=== PATIENT | male | born 1940 | race Caucasian/White ===

== ENCOUNTER 2017-03-15 08:17 | Emergency (ER) | payer OTHER ==
[~2017-03-15] VITALS: Ht 160 cm; Wt 76.2 kg
[~2017-03-15 08:17] MED LIST: AMLO1CAP56 PO; ASPI-1063 PO; ATEN-41 PO; CARB-15 PO; FINA5TAB11 PO; LISI40TA4 PO; NIAC500C8 PO; NITR0.4T13 SL; PRAM0.258 PO
[2017-03-15 08:31] VITALS: BP_SYST 166
[2017-03-15 09:06] LABS: BASOPHILS # (AUTO) 0.1 K/uL (0.0-0.2); BASOPHILS % (AUTO) 1.8 % (0.0-2.0); EOSINOPHILS # (AUTO) 0.2 K/uL (0.0-0.4); EOSINOPHILS % (AUTO) 1.9 % (0.0-4.0); HEMATOCRIT 47.1 % (36-54); HEMOGLOBIN 15.8 g/dL (14.0-18.0); LYMPHOCYTES # (AUTO) 2.1 K/uL (1.0-5.5); LYMPHOCYTES % (AUTO) 25.1 % (20.5-51.5); MEAN CORPUSCULAR HEMOGLOBIN 31 pg (27-31); MEAN CORPUSCULAR HGB CONC 34 % (32-36); MEAN CORPUSCULAR VOLUME 94 fL (79.0-98.0); MONOCYTES # (AUTO) 0.6 K/uL (0.0-1.0); MONOCYTES % (AUTO) 7.1 % (1.7-9.3); NEUTROPHILS # (AUTO) 5.2 K/uL (1.8-7.7); NEUTROPHILS % (AUTO) 64.1 % (40.0-70.0); PLATELET COUNT (AUTO) 203 K/uL (130-430); RED BLOOD CELL COUNT(AUTO) 5.04 MIL/uL (4.2-6.2); RED CELL DISTRIBUTION WIDTH 13.7 % (9.0-15.0); WHITE BLOOD COUNT (AUTO) 8.2 K/uL (4.8-10.8)
[2017-03-15 09:10] VITALS: BP_SYST 166
[2017-03-15 09:16] LABS: ANION GAP 8 (5-15); CALCIUM 8.8 mg/dL (8.4-11.0); CHLORIDE 104 mmol/L (98-107); CREATININE 1.32 mg/dL (0.55-1.30); GLUCOSE 120 mg/dL (70-99); POTASSIUM 3.7 mmol/L (3.5-5.1); SODIUM SERUM 138 mmol/L (136-145); UREA NITROGEN, BLOOD 23 mg/dL (8-21)
[2017-03-15 09:19] LABS: PROTHROMBIN TIME 10.6 SECS (9.5-12.5)
[2017-03-15 09:33] LABS: ALANINE AMINOTRANSFERASE 13 U/L (12-78); ASPARTATE AMINOTRANSFERASE 24 U/L (10-37); FREE T4 (FREE THYROXINE) 0.7 ng/dL (0.6-1.6); TOTAL BILIRUBIN 0.6 mg/dL (0.0-1.0)
[2017-03-15 09:35] LABS: ALCOHOL, BLOOD < 3 mg/dL (<10)
[2017-03-15 10:12] LABS: BILIRUBIN,URINE NEGATIVE (NEGATIVE); CLARITY/URINE CLEAR (CLEAR); COLOR,URINE YELLOW (YELLOW); GLUCOSE,URINE NEGATIVE (NEGATIVE); KETONES,URINE NEGATIVE (NEGATIVE); LEUKOCYTE ESTERASE ,URINE NEGATIVE (NEGATIVE); NITRITE, URINE NEGATIVE (NEGATIVE); PH,URINE 6.5 (5.0-8.0); PROTEIN URINE 2+ (NEGATIVE); UROBILINOGEN,URINE 0.2 (0.2-1.0)
[2017-03-15] MEDS ORDERED: CARB-64 PO (10:15)
[2017-03-15] MEDS ORDERED: LORA-258 PO (10:15)
[2017-03-15] MEDS ORDERED: QUET50TA13 PO (10:15)
[2017-03-15 10:17] LABS: BLOOD, URINE TRACE (NEGATIVE)
[2017-03-15 10:25] LABS: BARBITURATE, URINE NEGATIVE (NEG <=200); METHAMPHETAMINES SCREEN,URINE NEGATIVE (NEG <=500); URINE AMPHETAMINE NEGATIVE (NEG <=500)
[2017-03-15 10:26] LABS: BENZODIAZEPINE, URINE POSITIVE (NEG <=150); CANNABINOID, URINE NEGATIVE (NEG <=50); COCAINE, URINE NEGATIVE (NEG <=150); OPIATE, URINE NEGATIVE (NEG <=100); PHENCYCLIDINE SCREEN,URINE NEGATIVE (NEG <=25); UR TRICYCLIC ANTIDEPRESSANTS POSITIVE (NEG <=300); URINE METHADONE NEGATIVE (NEG <=200); URINE OXYCODONE SCREEN NEGATIVE (NEG <=100); URINE PROPOXYPHENE SCREEN NEGATIVE (NEG <=300)
[2017-03-15 10:34] LABS: BACTERIA,URINE FEW /HPF (None Seen); MUCUS,URINE None Seen /LPF (None Seen); RBC,URINE 0-3 /HPF (0-3); WBC,URINE 0-3 /HPF (0-3)
[2017-03-15] MEDS: cloNIDine HCL 0.1 MG TABLET PO ONE (11:31)
== END 2017-03-15 11:27 | disposition home or self-care (01) ==
LOC: SED 08:17
DX: R55 Syncope and collapse (principal); R53.1 Weakness; R51 Headache; I10 Essential (primary) hypertension; G20 Parkinson's disease; F03.90 Unspecified dementia, unspecified severity, without behavioral disturbance, psychotic disturbance, mood disturbance, and anxiety; E78.5 Hyperlipidemia, unspecified; I20.9 Angina pectoris, unspecified; Z95.1 Presence of aortocoronary bypass graft; Z79.82 Long term (current) use of aspirin; Z88.8 Allergy status to other drugs, medicaments and biological substances
CPT/HCPCS: 36415; 70450; 71010; 74000; 80053; 80307; 81000; 82140; 83605; 83880; 84439; 84484; 85025; 85610; 87040; 93005; 99285; G0482

== ENCOUNTER 2017-05-22 17:16 | Emergency (ER) | payer OTHER ==
[~2017-05-22] VITALS: Ht 160 cm; Wt 76.7 kg
[~2017-05-22 17:16] MED LIST changes: +CARB-64 PO; +LORA-258 PO; +QUET50TA13 PO
[2017-05-22 17:20] VITALS: BP_SYST 137
--- NOTE | 2017-05-22 17:20 | NUR ---
Patient to ER bed 2 to gown for evaluation. Side rails up. Report given to Dilcia BELL.
--- NOTE | 2017-05-22 17:30 | NUR ---
ER MD Simental at bedside to evaluate patient
--- NOTE | 2017-05-22 17:50 | NUR ---
# 20 gauge angiocath placed to RAC. Use of asceptic technique. Opsite placed over site. Blood return noted. Blood for lab drawn from site. Flushed with 10 cc of normal saline. No evidence of infiltration noted. Patient tolerated well.
--- NOTE | 2017-05-22 17:50 | NUR ---
Patient to ED for evaluation of falling while at home. Patient with HX of dementia and Parkinson's disease. Patient normally uses a walker. Patient also c/o pain to left elbow, and left side from fall. 12 lead EKG done and shown to ER MD. IV started-bloods drawn and placed at bedside pending orders. Patient shows sinus bradycardia on monitor. Will continue to observe and assess.
--- NOTE | 2017-05-22 18:16 | NUR ---
Medication reconciliation completed with information provided by FAMILY . Any prior medication reconciliation on file was reviewed and corrected.
--- NOTE | 2017-05-22 19:01 | NUR ---
BP 164/89. Daughter states BP meds due at 8pm. ER MD Simental aware of BP and states OK to discharge.
[2017-05-22 19:08] VITALS: BP_SYST 164
--- NOTE | 2017-05-22 19:08 | NUR ---
Patient's guardian (daughter) given written and verbal discharge instructions and verbalizes understanding. ER MD Simental discussed with patient's guardian the results and treatment provided. Patient in stable condition. ID arm band removed. IV catheter removed intact and dressing applied, no active bleeding. Patient's guardian educated on pain management, fever management, and to follow up with primary physician. Pain Scale/FLACC 0/10. Opportunity for questions provided and answered.
== END 2017-05-22 19:08 | disposition home or self-care (01) ==
LOC: SED 17:16
DX: S51.812A Laceration without foreign body of left forearm, initial encounter (principal); S50.02XA Contusion of left elbow, initial encounter; S09.90XA Unspecified injury of head, initial encounter; E78.5 Hyperlipidemia, unspecified; I10 Essential (primary) hypertension; G20 Parkinson's disease; F02.80 Dementia in other diseases classified elsewhere, unspecified severity, without behavioral disturbance, psychotic disturbance, mood disturbance, and anxiety; Z95.1 Presence of aortocoronary bypass graft; W19.XXXA Unspecified fall, initial encounter; Y93.89 Activity, other specified; Y92.89 Other specified places as the place of occurrence of the external cause; Y99.8 Other external cause status
CPT/HCPCS: 70450-TC; 99284